=== PATIENT | male | born 1960 | race Caucasian/White ===

== ENCOUNTER 2018-08-27 12:12 | Emergency (ER) | payer OTHER ==
--- NOTE | 2018-08-27 13:44 | RAD ---
LEFT FINGER 3 VIEWS: HISTORY: Trauma, left finger laceration and pain. FINDINGS/IMPRESSION: No fracture or dislocation is identified. POS: C
[2018-08-27] MEDS ORDERED: HYDROcodone/Acetaminophen 5/325 mg Tablet ONE ×2 (13:57→16:21)
[2018-08-27] MEDS ORDERED: Lidocaine 1% (PF) 30 ML VIAL ONE (14:28)
[2018-08-27] MEDS ORDERED: Ondansetron ODT 8 MG TAB ONE (16:08)
[2018-08-27] MEDS ORDERED: HYDROcodone/Acetaminophen 10/325 mg Tablet ONE (16:18)
[2018-08-27] MEDS ORDERED: Bacitracin Zinc 1 Packet ONE (16:49)
== END 2018-08-27 17:12 | disposition home or self-care (01) ==
LOC: ERS 12:12
DX: S61.112A Laceration without foreign body of left thumb with damage to nail, initial encounter (principal); S61.211A Laceration without foreign body of left index finger without damage to nail, initial encounter; W27.0XXA Contact with workbench tool, initial encounter
CPT/HCPCS: 11760; 12002; J2001